=== PATIENT | female | born 1965 | race Caucasian/White ===

== ENCOUNTER 2020-03-22 13:38 | Emergency (ER) | payer MEDICARE, OTHER ==
--- NOTE | 2020-03-22 14:51 | RAD ---
RADIOGRAPH CHEST 1 VIEW: DATE: 03/22/2020 TIME: 2:40 PM HISTORY: 54-year-old female with chest pain COMPARISON: 12/30/2009 FINDINGS: The right-sided hemodialysis catheter is no longer present. There are new right subclavian transvenou s permanent pacemaker wires and generator. No pneumothorax. Inspiration is shallower on the current study. Nonspecific mild streaky-patchy pulmonary irregular Density at right lower lung zone. No pulmonary edema or large consolidation. Ectasia and tortuosity o f thoracic aorta. IMPRESSION: 1) nonspecific mild pulmonary opacity at right lower lung zone, chronic versus acute. 2) ectasia and tortuosity of thoracic aorta. 3) pacemaker
[2020-03-22 15:27] LABS: #Eosinphils 0.1 thou/uL (0.0-0.7); #Lymphocytes 1.6 thou/uL (1.20-3.40); #Monocytes 1.2 thou/uL (0.11-0.59); #Neutrophils 11.8 thou/uL (1.40-6.50); %Basophils 0.2 % (0.0-1.0); %Eosinophils 0.4 % (0.0-10.0); %Lymphocytes 10.9 % (21.0-51.0); %Monocytes 8.1 % (0.0-10.0); %Neutrophils 80.5 % (42.0-75.0); Hemoglobin 11.8 g/dL (12.0-16.0); Mean Corpuscular HGB CONC 31.6 g/dL (32.0-36.0); Mean Corpuscular Hemoglobin 26.6 pg (27.0-31.0); Mean Corpuscular Volume 84.2 fL (78.0-98.0); Mean Platelet Volume 9.1 fL (7.4-10.4); Platelet Count 181 thou/uL (130-400); RBC Distribution Width 13.6 % (11.5-14.5); Red Blood Cell (RBC) Count 4.43 mill/uL (4.20-5.40); White Blood Cell (WBC) Count 14.6 thou/uL (4.8-10.8)
[2020-03-22 15:44] LABS: ALT (SGPT) 12 U/L (8-55); AST (SGOT) 15 U/L (5-34); Albumin 4.3 g/dL (3.5-5.0); Alkaline Phosphatase 42 U/L (40-110); Anion Gap 21 mmol/L (10-20); BUN (Urea Nitrogen) 49 mg/dL (9.8-20.1); Bilirubin, Total 0.7 mg/dL (0.2-1.2); CK (CPK) 90 U/L (29-168); Calc. Creatinine Clearance 0 mL/min (70-130); Carbon Dioxide 18 mmol/L (22-29); Chloride 104 mmol/L (98-107); Globulin 3.2 g/dL (2.4-3.5); Glucose 113 mg/dL (70-105); Potassium 5.4 mmol/L (3.5-5.1); Protein, Total 7.5 g/dL (6.0-8.3); Sodium 138 mmol/L (136-145)
[2020-03-22 16:04] LABS: CKMB 1.4 ng/mL (0-6.6)
--- NOTE | 2020-03-22 17:57 | CT ---
CT head noncontrast HISTORY: Altered mental status. COMPARISON: 07/19/2010. FINDINGS: There is no evidence of acute intracranial hemorrhage or infarct. The ventricles appear nor mal in size, shape and position. There is no mass effect or shift of midline structures. Calcification within the arterial structures of the brain base. IMPRESSION : No acute intracranial abnormalities are demonstrated. Atherosclerosis.
--- NOTE | 2020-04-03 13:41 | EKG ---
Test Reason : CHEST PAIN Blood Pressure : / mmHG Vent. Rate : 060 BPM Atrial Rate : 060 BPM P-R Int : 178 ms QRS Dur : 142 ms QT Int : 532 ms P-R-T Axes : 012 -67 074 degrees QTc Int : 532 ms AV dual-paced rhythm Abnormal ECG Confirmed by VIBHA SALGUERO DO [id number]), legal editor BANDAR MARTINEZ ([id number] on 04/03/2020 1:41:17 PM Referred By: Confirmed By:VIBHA SALGUERO DO
== END 2020-03-22 19:18 | disposition short-term general hospital (02) ==
LOC: ERS 13:38
DX: R07.2 Precordial pain (principal); R06.02 Shortness of breath; R09.02 Hypoxemia; R41.82 Altered mental status, unspecified; I12.9 Hypertensive chronic kidney disease with stage 1 through stage 4 chronic kidney disease, or unspecified chronic kidney disease; N18.9 Chronic kidney disease, unspecified; Z85.528 Personal history of other malignant neoplasm of kidney; Z79.899 Other long term (current) drug therapy
CPT/HCPCS: 36415; 70450; 71045; 80053; 82550; 82553; 83880; 84484; 85025; 93005